=== PATIENT | female | born 1945 | race Caucasian/White ===

== ENCOUNTER 2019-11-17 13:38 | Outpatient (CLI) | payer MEDICARE, SELFPAY ==
--- NOTE | ~2019-11-17 | MM_ITS ---
EXAMINATION: MM diagnostic mammo BI HISTORY: Left breast calcifications and right breast mass on screening mammogram TECHNIQUE: Additional images of the breasts were performed. CAD analysis was submitted and interprete d. COMPARISON: 10/24/2019, 06/18/2015, 01/29/2014 FINDINGS: MAMMOGRAPHIC FINDINGS: Right breast: There is a 5 mm oval, obscured, equal density mass in the anterior third of the inner b reast 3 cm from the nipple. No associated calcification or architectural distortion are seen. Left breast: There are punctate calcifications in the posterior third of the breast at the 7:00 locat ion 8 cm from the nipple. The calcifications appear to be round in morphology and similar an appearan ce to prior mammograms of low magnification views have not previously been performed. IMPRESSION: 1. Persistent small right breast mass. Targeted right breast ultrasound is recommended. The patient i s unable to have this performed today and will return at a later date. 2. Probably benign left breast calcifications. Follow-up diagnostic left mammogram in six months is r ecommended. BI-RADS Category 0: Incomplete: Needs additional imaging evaluation. Reviewed, dictated and finalized at location A. [employer] WORK[employer] IMPRESSION: 1. Persistent small right breast mass. Targeted right breast ultrasound is gissel mmended. The patient is unable to have this performed today and will return at a later date. 2. Probably benign left breast calcifications. Follow-up diagnostic left mammog viki in six months is recommended. BI-RADS Category 0: Incomplete: Needs additional imaging evaluation.
== END 2019-11-17 13:39 | disposition home or self-care (01) ==
LOC: ANHIMG 13:48
PROVIDERS: PCP Nurse Practitioner Adult Health; Visit Provider Nurse Practitioner Adult Health
DX: R92.8 Other abnormal and inconclusive findings on diagnostic imaging of breast (principal)
CPT/HCPCS: 77066

== ENCOUNTER 2019-11-24 13:35 | Outpatient (CLI) | payer MEDICARE, SELFPAY ==
--- NOTE | ~2019-11-24 | US_ITS ---
US breast RT limited DATE: 11/24/2019 14:40 INDICATION: Right breast 4.5 mm mass on 10/24/2019 screening mammogram TECHNIQUE: High-resolution ultrasound imaging of the subareolar area of the right breast COMPARISON: 10/24/2019 bilateral digital screening mammogram 11/17/2019 diagnostic right digital mammogram FINDINGS: In the subareolar area of the right breast at 12:00 there is an oval approximately 4 mm son olucency. There is no internal vascularity or posterior shadowing. This is likely a small cyst. There is mild prominence of the ducts in the subareolar area. IMPRESSION: BI-RADS Category 3: Probably benign findings Recommendation: 6 month diagnostic right mammogram and targeted right breast ultrasound follow-up Reviewed, dictated and finalized at Location A. Reviewed, dictated and finalized at location A. GER SHAREPOINT IMPRESSION: BI-RADS Category 3: Probably benign findings Recommendation: 6 month diagnostic right mammogram and targeted right breast ul trasound follow-up
== END 2019-11-24 13:36 | disposition home or self-care (01) ==
PROVIDERS: PCP Nurse Practitioner Adult Health; Visit Provider Nurse Practitioner Adult Health
DX: R92.8 Other abnormal and inconclusive findings on diagnostic imaging of breast (principal)
CPT/HCPCS: 76642

== ENCOUNTER 2021-02-10 12:09 | Outpatient (CLI) | payer MEDICARE, SELFPAY ==
--- NOTE | ~2021-02-10 | MM_ITS ---
EXAMINATION: MM diagnostic maribel BI w manolo HISTORY: 12:00 subareolar 4 mm cyst; probably benign left breast microcalcifications, lower inner domitila drant TECHNIQUE: ML, MLO and craniocaudal 3-D tomosynthesis images of both breasts were performed and synth etic 2-D images were generated. Magnification views of lower inner quadrant of left breast. CAD thang sis was submitted and interpreted. COMPARISON: 11/17/2019 bilateral diagnostic digital mammogram 11/24/2019 limited right breast ultrasound FINDINGS: Minimal punctate benign appearing macro calcifications are noted in the lower inner quadran t of the left breast; no malignant calcifications are evident. Stable circumscribed low-density 4 mm opacity in the medial right subareolar area, consistent with cy sts reported on limited right breast ultrasound examination. No suspicious mass or architectural distortion, malignant calcification, skin thickening or retractio n or significant new or developing density of either breast is evident. IMPRESSION: 1. No mammographic evidence of malignancy 2. Routine annual mammographic screening is recommended BI-RADS Category 2: Benign finding(s). Reviewed, dictated and finalized at location A.
== END 2021-02-10 12:10 | disposition home or self-care (01) ==
LOC: ANHIMG 12:10
PROVIDERS: PCP Nurse Practitioner Adult Health; Visit Provider Nurse Practitioner Adult Health
DX: R92.8 Other abnormal and inconclusive findings on diagnostic imaging of breast (principal)
CPT/HCPCS: 77062; 77066; G0279

== ENCOUNTER 2023-02-09 19:50 | Emergency (ER) | payer MEDICARE, SELFPAY ==
--- NOTE | ~2023-02-09 | CT_ITS ---
EXAMINATION: CT abdomen pelvis w con, CT lumbar spine wo con DATE: 02/09/2023 21:30 INDICATION: Left flank pain and low back pain TECHNIQUE: Line 1. Computed tomography (CT) of the lumbar spine was performed without intravenous contrast. Sagittal and coronal reconstructions were performed. Automated exposure control and iterative reconstruction t echnique were employed. The dose-length product was 1275.6 mGy-cm. 2. CT of the abdomen and pelvis was performed with 100 mL Omnipaque-350 intravenous contrast. Automat ed exposure control and iterative reconstruction technique were employed. The dose-length product was 565.24 mGy-cm. COMPARISON: CT abdomen dated 08/07/2010 FINDINGS: Abdomen and pelvis: Minimal dependent atelectasis in the bilateral lower lobes. Heart size is normal. Atherosclerotic cor onary artery calcific location. No pericardial or pleural effusion. Chronic intra and extra hepatic p neumobilia likely related to prior cholecystectomy. Liver is otherwise unremarkable. Spleen, pancreas , bilateral adrenal glands and left kidney are normal. Mild right hydronephrosis with no evident urol ithiasis or obstructing mass. 6 mm cyst at the lower pole of the right kidney. Bladder is normal. Lar ge amount stool in the proximal colon. No bowel obstruction. The appendix is not visualized. No peric ecal inflammatory change to suggest acute appendicitis. Tiny calcification in the anterior uterine wa ll likely related to a small degenerated uterine fibroid. Bilateral adnexa are unremarkable. No free intraperitoneal gas or fluid. No pathologically enlarged abdominal or pelvic lymphadenopathy. Postope rative change of interval supraumbilical ventral hernia mesh repair. Lumbar spine: Alignment is normal. Subtle linear lucency along a relatively recent-appearing mild superior endplate compression fracture at T12 with <20% central vertebral body height loss. Remaining vertebral body h eights are normal. No other fractures identified. Mild disc height loss at T10-T11, T12-L1, L1-L2 and L2-L3. There are disc bulges at L1-L2 through L5-S1 resulting in mild central canal stenosis at each of these levels with the exception of L4-L5. At this level there is mild bilateral hypertrophy of th e ligamentum flavum as well as a rim calcified 9 x 6 mm right-sided synovial cyst which results in mo derate central canal stenosis along with narrowing of the right lateral recess and moderate right leif ral foraminal stenosis. Severe facet osteoarthritis bilaterally at L4-L5 and on the right at L5-S1. M ild to moderate facet osteoarthritis at the remaining lumbar and lower thoracic levels. There is jasiel tional moderate neural foraminal stenosis on the right at L5-S1 and mild neural from stenosis through out the remainder of the lumbar spine. IMPRESSION: 1. Mild lumbar spondylosis with relatively acute appearing mild compression fracture of the superior endplate of T12. 2. Mild right hydronephrosis without evident obstructing stone or masses. Reviewed, dictated and finalized at location A. IMPRESSION: 1. Mild lumbar spondylosis with relatively acute appearing mild compression fra cture of the superior endplate of T12. 2. Mild right hydronephrosis without evident obstructing stone or masses.
[2023-02-09 19:57] VITALS: BP 173/80; PULSE 93; RESP 20; TEMP 36.2; O2SAT 98
--- NOTE | 2023-02-09 20:18 | ED.BACK ---
HPI - Back Pain/Injury General Chief Complaint: Back Pain/Injury Stated Complaint: back pain Time Seen by Provider: 02/09/23 20:01 Source: patient Mode of arrival: ambulatory Limitations: no limitations History of Present Illness HPI Narrative: This is a 77-year-old female who presents to the ED with chief complaint of left flank pain onset x2 days. Patient states it has been gradually worsening. She was seen by her PCP yesterday and given prescriptions for Flexeril, naproxen, tramadol. States she has been taking these with very little relief. Although she does feel like the muscle relaxer has helped more than the other 2 meds. Denies any urinary symptoms. She states that the pain stays in the left flank and radiates up and down somewhat. No known injuries, but does report frequently picking up her grandson. Rates the pain at 8 out of 10. Does not report any abdominal pain. Denies nausea or vomiting. Denies fevers, chills, chest pain, shortness of breath, cough. Related Data Allergies Allergy/AdvReac Type Severity Reaction Status Date / Time Penicillins Allergy Unknown Unknown Verified 02/09/23 20:00 Review of Systems Review of Systems: CONSTITUTIONAL: Denies fever, chills, or sweats. EYES: Denies visual changes, redness, or discharge. ENT: Denies rhinorrhea, congestion, sore throat, or otalgia. CARDIOVASCULAR: Denies chest pain, palpitations, or edema. RESPIRATORY: Denies cough or dyspnea. GASTROINTESTINAL: See HPI GENITOURINARY: Denies dysuria or hematuria. Denies frequency or urgency. SKIN: Denies rash or itching. MUSCULOSKELETAL: Denies back pain, joint pain, or myalgia. NEUROLOGIC: Denies headache, numbness, dizziness, or weakness. PSYCHIATRIC: Denies anxiety or depression. [facility] Family History Family History (Updated 06/10/14 @ 07:13 by DOCTOR UNKNOWN) Father Family history of malignant neoplasm of esophagus Social History Social History Alcohol intake: never Exam Narrative: GENERAL: Well-appearing, well-nourished, and in no acute distress. HEAD: Normocephalic, atraumatic. EYES: PERRLA and EOMI. ENT: Nares clear, no rhinorrhea or epistaxis. Mucous membranes moist. Oropharynx without tonsillar hypertrophy exudate or other lesions. NECK: Supple. No adenopathy or masses. CHEST: No respiratory distress. Clear to auscultation. No wheezes rales or rhonchi HEART: Regular rate and rhythm. No murmur heard. Normal peripheral pulses. ABDOMEN: Left flank tenderness present. Abdomen is otherwise soft, nontender, nondistended, normal active bowel sounds. Negative peritoneal signs. EXTREMITIES/SPINE: Minimal midline tenderness in the lower thoracic and lumbar spine. No stepoff or deformity. Left paraspinal tenderness in the lumbar region. MSK exam otherwise benign. Ambulatory. Normal range of motion. No edema. SKIN: Warm, dry, no rash. NEURO: Alert and oriented x3. No focal deficits. PSYCH: Normal mood and affect. Course Vital Signs Vital signs: Vital Signs Temperature 97.2 F L 02/09/23 19:57 Pulse Rate 93 02/09/23 19:57 Respiratory Rate 20 02/09/23 19:57 Blood Pressure 173/80 H 02/09/23 19:57 Pulse Oximetry 98 02/09/23 19:57 Oxygen Delivery Room Air 02/09/23 19:57 Temperature 97.2 F L 02/09/23 19:57 Pulse Rate 86 02/09/23 22:47 Respiratory Rate 16 02/09/23 22:47 Blood Pressure 146/73 H 02/09/23 22:47 Pulse Oximetry 97 02/09/23 22:47 Oxygen Delivery Room Air 02/09/23 19:57 MDM - Back Pain/Injury MDM Narrative Medical decision making narrative: This is a 77-year-old female presents the ED with chief complaint of left flank pain x2 days. Vitals show initial hypertension, likely due to pain. Otherwise stable. Exam reveals some left flank tenderness. Otherwise benign. Lab work is grossly unremarkable. CT of the abdomen is unremarkable as well. CT lumbar does show evidence of a T12-L1 endplate compression fracture. Due to her pain more in
[2023-02-09] MEDS: ONDANSETRON INJ 4 MG/2 ML VIAL IV PUSH (20:34)
[2023-02-09] MEDS: SODIUM CHLORIDE 0.9% IV 500 ML 999 ML IV CONT (20:34)
[2023-02-09] MEDS: MORPHINE SULFATE (*CRX) 4 MG/ML INJ IV PUSH (20:34)
[2023-02-09 20:43] LABS: Hematocrit 28.9 % (37.0-47.0); Hemoglobin 8.2 g/dL (12.0-15.0); Mean Corpuscular HGB Conc 28.4 g/dl (32-36); Mean Corpuscular Volume 70.7 fl (80-100); Mean Platelet Volume 8.5 fl (7.4-10.4); Platelet Count Result 318 k/mm3 (150-375); Red Blood Count 4.09 M/mm3 (4.2-5.4); White Blood Count 7.4 K/mm3 (4.5-10.0)
[2023-02-09 20:46] LABS: Appearance Urine Clear (Clear); Bilirubin Urine Negative (Negative); Blood Urine Negative (Negative); Color Urine Yellow (Yellow); Glucose Urine UA Negative (Negative); Ketones Urine Negative (Negative); Leukocyte Esterase Ur Negative LEU/UL (Negative); Nitrate Urine Negative (Negative); Protein Urine Negative (Negative); Specific Grav Ur 1.007 (1.001-1.035); Urobilinogen Urine 0.2 mg/dL (<2.0)
[2023-02-09 20:52] LABS: Alanine Aminotransferase 27 U/L (6-35); Albumin Level 4.2 g/dL (3.5-5.1); Alkaline Phosphatase 103 U/L (38-126); Anion Gap 11 mmol/L (8-16); Aspartate Amino Transferase 36 U/L (14-36); Bilirubin,Total 0.6 mg/dL (0.2-1.3); Blood Urea Nitrogen 22 mg/dL (7-17); Calcium 9.3 mg/dL (8.4-10.2); Carbon Dioxide 24 mmol/L (22-30); Chloride 103 mmol/L (98-107); Estimated CRCL calculation 34 ml/min; Estimated Glomerular Filt Rate 48; Glucose 104 mg/dL (65-110); Sodium 138 mmol/L (137-145)
[2023-02-09 21:01] LABS: Add Urine Microscopic? NO
[2023-02-09 21:30] LABS: Anisocytosis 2+ (NORMAL); Lymphocytes Absolute Manual 2.29 K/mm3 (1.1-4.5); Monocytes Absolute Manual 0.29 K/mm3 (0.1-0.90); Monocytes Percent Manual 4 % (3-9); Neutrophils Percent Manual 65 % (46-73); Platelet Estimate Adequate (Adequate); Total Cells Counted 100
[2023-02-09 21:31] LABS: Acanthocytes 2+ (NORMAL); Hypochromasia 2+ (NORMAL); Macrocytosis 1+ (NORMAL); Microcytosis 2+ (NORMAL); Poikilocytosis 3+ (NORMAL); Schistocytes 1+ (NORMAL)
[2023-02-09 21:32] LABS: Burr Cells 2+ (NORMAL); Crenated RBC 2+ (NORMAL)
[2023-02-09 21:33] LABS: Ovalocytes 2+ (NORMAL)
[2023-02-09 22:47] VITALS: BP 146/73; PULSE 86; RESP 16; O2SAT 97
== END 2023-02-09 22:51 | disposition home or self-care (01) ==
PROVIDERS: Emergency Provider Physician Assistant; PCP Nurse Practitioner Adult Health
DX: S22.080A Wedge compression fracture of T11-T12 vertebra, initial encounter for closed fracture (principal); S39.012A Strain of muscle, fascia and tendon of lower back, initial encounter; M47.816 Spondylosis without myelopathy or radiculopathy, lumbar region; N13.30 Unspecified hydronephrosis; X58.XXXA Exposure to other specified factors, initial encounter
CPT/HCPCS: 36415; 72131; 74177; 80053; 81003; 85025; 96361; 96374; 96375; 99284; J2270; J2405; J7040; Q9967

== ENCOUNTER 2024-01-28 10:34 | Outpatient (CLI) | payer MEDICARE, SELFPAY ==
[2024-01-28 19:02] LABS: Hematocrit 34.3 % (37.0-47.0); Hemoglobin 9.2 g/dL (12.0-15.0); Mean Corpuscular HGB Conc 26.8 g/dl (32-36); Mean Corpuscular Hemoglobin 20.2 pg (26-34); Mean Corpuscular Volume 75.4 fl (80-100); Mean Platelet Volume 9.7 fl (7.4-10.4); Platelet Count Result 393 k/mm3 (150-375); Red Blood Count 4.55 M/mm3 (4.2-5.4); Red Cell Distribution Width 18.5 % (11.5-14.5); White Blood Count 8.5 K/mm3 (4.5-10.0)
[2024-01-28 19:19] LABS: Iron 39 ug/dL (37-170)
[2024-01-28 19:28] LABS: Percent Iron Saturation 8 % (20-50)
[2024-01-28 19:44] LABS: Alanine Aminotransferase 25 U/L (6-35); Albumin Level 4.7 g/dL (3.5-5.1); Alkaline Phosphatase 88 U/L (38-126); Anion Gap 10 mmol/L (4-12); Aspartate Amino Transferase 45 U/L (14-36); Bilirubin,Total 0.4 mg/dL (0.2-1.3); Blood Urea Nitrogen 25 mg/dL (7-17); Calcium 10.7 mg/dL (8.4-10.2); Carbon Dioxide 25 mmol/L (22-30); Chloride 105 mmol/L (98-107); Cholesterol 198 mg/dL (0-200); Estimated Glomerular Filt Rate 43; Glucose 205 mg/dL (65-110); HDL Direct 49 mg/dL; Potassium 4.4 mmol/L (3.4-5.0); Sodium 140 mmol/L (137-145); Triglycerides 199 mg/dL (<150)
[2024-01-28 19:55] LABS: Ferritin 6.24 ng/mL (11.1-264); LDL Cholesterol Direct 113 mg/dL
[2024-01-28 20:04] LABS: MALB Creatinine Ratio 45.6 mg/g (0-30); Microalbumin Urine Random 105.3 mg/L (0-16.7)
[2024-01-28 20:50] LABS: Folic Acid 14.8 ng/mL (2.76->20)
== END 2024-01-28 10:35 | disposition home or self-care (01) ==
PROVIDERS: PCP Nurse Practitioner Adult Health; Visit Provider Nurse Practitioner Adult Health
DX: E11.9 Type 2 diabetes mellitus without complications (principal); R41.3 Other amnesia
CPT/HCPCS: 36415; 80053; 80061; 82043; 82607; 82728; 82746; 83036; 83540; 83550; 84443; 85027

== ENCOUNTER 2024-04-29 16:40 | Outpatient (CLI) | payer MEDICARE, SELFPAY ==
--- NOTE | ~2024-04-29 | US_ITS ---
RIGHT LOWER EXTREMITY VENOUS ULTRASOUND Ordering provider: Casie Medel APRN History: . M.063 - Pain in right lower leg . Comparison: None. FINDINGS: --COMMON FEMORAL: Patent and free of thrombus. Normal compressibility, phasic flow and augmentation. --PROXIMAL SUPERFICIAL FEMORAL: Patent and free of thrombus. Normal compressibility, phasic flow and augmentation. --DISTAL SUPERFICIAL FEMORAL: Patent and free of thrombus. Normal compressibility, phasic flow and au gmentation. --POPLITEAL: Patent and free of thrombus. Normal compressibility, phasic flow and augmentation. --POSTERIOR TIBIAL: Patent and free of thrombus. Normal compressibility, phasic flow and augmentation . IMPRESSION: Negative right lower extremity venous US. No deep vein thrombosis. Reviewed, dictated and finalized at location A.
== END 2024-04-29 16:41 | disposition home or self-care (01) ==
LOC: ANHIMG 16:42
PROVIDERS: PCP Nurse Practitioner Adult Health; Visit Provider Nurse Practitioner Adult Health
DX: M79.661 Pain in right lower leg (principal); R60.0 Localized edema
CPT/HCPCS: 93971

== ENCOUNTER 2024-04-30 11:18 | Outpatient (CLI) | payer MEDICARE, SELFPAY ==
--- NOTE | ~2024-04-30 | XR_ITS ---
Right ankle Technique: AP and lateral views were obtained. Clinical History: Pain Findings: No acute fracture or dislocation is seen. Osseous alignment is anatomic. Ankle mortise and other visualized joint spaces are preserved. Soft tissues are otherwise unremarkable. Impression: Unremarkable right ankle. Reviewed, dictated and finalized at location . Impression: Unremarkable right ankle.
--- NOTE | ~2024-04-30 | XR_ITS ---
Right foot Technique: AP and lateral views were obtained. Clinical History: Pain Findings: No acute fracture or dislocation is seen. Osseous alignment is anatomic. Probable moderate degenerative change of the tarsometatarsal joints. Soft tissues are unremarkable. 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 Reviewed, dictated and finalized at location . 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
== END 2024-04-30 11:19 | disposition home or self-care (01) ==
PROVIDERS: PCP Nurse Practitioner Adult Health; Visit Provider Nurse Practitioner Adult Health
DX: M79.671 Pain in right foot (principal)
CPT/HCPCS: 73600; 73620

== ENCOUNTER 2024-06-01 10:58 | Outpatient (CLI) | payer MEDICARE, SELFPAY ==
[2024-06-01 19:18] LABS: Microalbumin Urine Random 51.5 mg/L (0-16.7)
== END 2024-06-01 10:59 | disposition home or self-care (01) ==
LOC: ANHBWCLAB 11:00
PROVIDERS: PCP Nurse Practitioner Adult Health; Visit Provider Nurse Practitioner Adult Health
DX: E11.9 Type 2 diabetes mellitus without complications (principal); I10 Essential (primary) hypertension
CPT/HCPCS: 82043

== ENCOUNTER 2024-06-02 06:35 | Outpatient (CLI) | payer MEDICARE, SELFPAY ==
[2024-06-02 18:40] LABS: Basophils Percent Auto 0.5 % (0.2-1.2); Eosinophils Absolute Auto 0.2 K/mm3 (0-0.3); Eosinophils Percent Auto 3.5 % (0-4.4); Hematocrit 30.7 % (37.0-47.0); Immature Granulocyte Absolute 0.02 K/mm3 (0.00-0.031); Immature Granulocyte Percent A 0.3 % (0-0.5); Lymphocytes Absolute Auto 1.54 K/mm3 (0.9-3.2); Lymphocytes Percent Auto 26.6 % (18.3-44.2); Mean Corpuscular HGB Conc 29.3 g/dl (32-36); Mean Corpuscular Hemoglobin 24.1 pg (26-34); Mean Corpuscular Volume 82.1 fl (80-100); Monocytes Absolute Auto 0.4 K/mm3 (0.1-0.6); Monocytes Percent Auto 6.4 % (2.6-8.5); Neutrophils Absolute Auto 3.6 K/mm3 (1.3-6.7); Neutrophils Percent Auto 62.7 % (45.5-73.1); Platelet Count Result 299 k/mm3 (150-375); Red Blood Count 3.74 M/mm3 (4.2-5.4); Red Cell Distribution Width 19.7 % (11.5-14.5); White Blood Count 5.8 K/mm3 (4.5-10.0)
[2024-06-02 18:43] LABS: Alanine Aminotransferase 22 U/L (6-35); Albumin Level 4.1 g/dL (3.5-5.1); Alkaline Phosphatase 86 U/L (38-126); Anion Gap 11 mmol/L (4-12); Aspartate Amino Transferase 46 U/L (14-36); Bilirubin,Total 0.3 mg/dL (0.2-1.3); Blood Urea Nitrogen 19 mg/dL (7-17); Calcium 9.7 mg/dL (8.4-10.2); Carbon Dioxide 28 mmol/L (22-30); Chloride 100 mmol/L (98-107); Cholesterol 183 mg/dL (0-200); Estimated Glomerular Filt Rate 40; Glucose 162 mg/dL (65-110); HDL Direct 42 mg/dL; Magnesium 1.6 mg/dL (1.6-2.3); Potassium 4.7 mmol/L (3.4-5.0); Sodium 139 mmol/L (137-145); Triglycerides 178 mg/dL (<150)
[2024-06-02 18:54] LABS: LDL Cholesterol Direct 98 mg/dL
[2024-06-02 18:59] LABS: Platelet Estimate Adequate (Adequate)
[2024-06-02 19:00] LABS: Anisocytosis 1+; Ovalocytes 2+; Poikilocytosis 2+
[2024-06-02 19:02] LABS: Schistocytes None Seen
[2024-06-02 19:20] LABS: Hemoglobin A1C 8.2 % (<5.7)
[2024-06-02 19:44] LABS: Folic Acid 12.8 ng/mL (2.76->20)
== END 2024-06-02 06:36 | disposition home or self-care (01) ==
PROVIDERS: PCP Nurse Practitioner Adult Health; Visit Provider Nurse Practitioner Adult Health
DX: E11.9 Type 2 diabetes mellitus without complications (principal); I10 Essential (primary) hypertension; E53.8 Deficiency of other specified B group vitamins
CPT/HCPCS: 36415; 80053; 80061; 82565; 82607; 82746; 83036; 83735; 85025

== ENCOUNTER 2024-08-19 10:35 | Outpatient (CLI) | payer MEDICARE, SELFPAY ==
[2024-08-19 21:22] LABS: Add Urine Microscopic? YES; Appearance Urine Turbid (Clear); Bacteria Urine 4+ /hpf; Bilirubin Urine Negative (Negative); Blood Urine 3+ (Negative); Color Urine Yellow (Yellow); Glucose Urine UA Negative (Negative); Ketones Urine Trace mg/dL (Negative); Leukocyte Esterase Ur 3+ LEU/UL (Negative); Need Manual Microscopic Reviewed; Nitrate Urine Positive (Negative); Protein Urine 2+ mg/dL (Negative); RBC Urine 0-2 /hpf (0-2); Specific Grav Ur 1.024 (1.001-1.035); Squamous Epithelial Cell Urine Few /hpf (Few); WBC Urine >100 /hpf (0-3)
== END 2024-08-19 10:36 | disposition home or self-care (01) ==
PROVIDERS: PCP Nurse Practitioner Adult Health; Visit Provider Nurse Practitioner Adult Health
DX: R39.9 Unspecified symptoms and signs involving the genitourinary system (principal)
CPT/HCPCS: 81001; 87077; 87086; 87186

== ENCOUNTER 2024-11-18 09:57 | Outpatient (CLI) | payer MEDICARE, SELFPAY ==
[2024-11-18 18:37] LABS: Creatinine Urine 133.7 mg/dL
[2024-11-18 18:42] LABS: MALB Creatinine Ratio 71.5 mg/g (0-30); Microalbumin Urine Random 95.6 mg/L (0-16.7)
[2024-11-18 18:56] LABS: Alanine Aminotransferase 26 U/L (6-35); Albumin Level 4.3 g/dL (3.5-5.1); Alkaline Phosphatase 92 U/L (38-126); Anion Gap 10 mmol/L (4-12); Aspartate Amino Transferase 43 U/L (14-36); Bilirubin,Total 0.4 mg/dL (0.2-1.3); Blood Urea Nitrogen 20 mg/dL (7-17); Calcium 9.9 mg/dL (8.4-10.2); Carbon Dioxide 26 mmol/L (22-30); Chloride 102 mmol/L (98-107); Cholesterol 190 mg/dL (0-200); Estimated Glomerular Filt Rate 45; Glucose 134 mg/dL (65-110); HDL Direct 46 mg/dL; Potassium 4.5 mmol/L (3.4-5.0); Sodium 138 mmol/L (137-145); Triglycerides 224 mg/dL (<150)
[2024-11-18 19:07] LABS: LDL Cholesterol Direct 113 mg/dL
[2024-11-18 19:22] LABS: Hemoglobin A1C 8.9 % (<5.7)
== END 2024-11-18 09:58 | disposition home or self-care (01) ==
PROVIDERS: PCP Nurse Practitioner Adult Health; Visit Provider Nurse Practitioner Adult Health
DX: E11.9 Type 2 diabetes mellitus without complications (principal); E53.8 Deficiency of other specified B group vitamins
CPT/HCPCS: 36415; 80053; 80061; 82043; 82565; 82607; 83036

== ENCOUNTER 2025-02-16 08:51 | Outpatient (CLI) | payer MEDICARE, SELFPAY ==
--- OUTSIDE RECORDS SUMMARY | 2025-02-16 09:21 | XMS_ITS | Continuity of Care Document ---
Author Organization [facility] [place] [address] [place] [address] Phone Care Team Providers Care Nursing Home Aide Name Role Phone Ana María Reyes Unavailable Unavailable Procedures Procedure Date Office/outpatient Visit, Est Optic Nerve Head Eval IOP Red Less Than 15% W Plan Of Care Jul IOP Red Less That 15% W Plan Of Care Jul Eye Exam & Treatment Visual Field Examination(s) Office/outpatient Visit, Est Office/outpatient Visit, Est Visual Field Examination(s) Office/outpatient Visit, Est Fundus Photography W/ Report Office/outpatient Visit, Est Office/outpatient Visit, Est Office/outpatient Visit, Est Visual Field Examination(s) Advance Directives Directive Yes / No Effective Date File Name No Information Encounters Encounter Description Practice Location Reason(s) For Visit Diagnoses Date Provider Providers Copied on Encounter Office/outpat ient Visit, Est [facility], [address], [place], [place], [id number], [place] tel:[phone] SEC [facility] No Information Oct-0 7-201 0 Amy Gotti. [address] , [address], [place], [address], [place]. tel:[phone] [facility] Eye [facility], [id number] [place] [address] [address], [place], [place], [id number], [place] [phone] [facility] [place] No Information Hal-1 0-201 0 Amy Sylvester [address] [facility] , [address], [place], [place], [facility], . tel:[phone] [facility] Eye [facility], [address] [place] [address] [address], [place], [place], [id number], [place] [phone] [facility] [place] No Information Dec-0 3-200 9 Amy Sylvester [address] [facility] , [address], [place], [place], [facility], . tel:[phone] Referring Provider: Blayne Menendez [facility] [address], [place], [place], [facility]. tel:[phone] Office/outpat ient Visit, [facility] Eye [facility], [id number] [place] [address] [address], [place], [place], [id number], [place] tel:[phone] [facility] [place] No Information Delvis-1 6-200 9 Amy Sylvester [address] [facility] , [address], [place], [place], [facility], . tel:[phone] Office/outpat ient Visit, [facility] Eye [facility], [address] [place] [address] [address], [place], [place], [id number], [place] tel:[phone] [facility] [place] No Information Mar-0 5-200 9 Amy Sylvester [address] [facility] , [address], [place], [place], [facility], . tel:[phone] [facility] Eye [facility], [address] [place] [address] [address], [place], [place], [id number], [place] tel:[phone] [facility] [place] No Information Oct-1 6-200 8 Amy Sylvester [address] , [address], [place], [place], [facility], [place]. tel:[phone] Referring Provider: Blayne Menendez [address], [place], [place], [facility]. tel:[phone] Office/outpat ient Visit, [facility] Eye [facility], [address] [place] [address] [address], [place], [place], [id number], [place] tel:[phone] [facility] No Information 8 Amy [address] , [address], [place], [place], [facility], [place]. tel:[phone] Referring Provider: Blayne Menendez [facility] [address], [place], [place], [facility]. tel:[phone] Office/outpat ient Visit, [facility] Eye [facility], [address] [place] [address] [address], [place], [place], [id number], [place] tel:[phone] [facility] No Information 8 Amy [address] [facility] , [address], [place], [place], [facility], [place]. tel:[phone] Office/outpat ient Visit, [facility] Eye [facility], [address] [place] [address] [address], [place], [place], [id number], [place] tel:[phone] [facility] [place] No Information [address], [place], [place], [facility], [place]. tel:[phone] Office/outpat ient Visit, [facility] Eye [facility], [address] [place] [address] [address], [place], [place], [id number], [place] tel:[phone] [facility] No Information 7 Amy [address] , [address], [place], [place], [facility], [place]. tel:[phone] [facility] Eye [facility], [address], [place], [place], [id number], [place] tel:[phone] [facility] No Information 7 Aym Gotti. [address] , [address], [place], [address], [place]. tel:[phone] Referring Provider: Ana María Silvestre, [address], [place], [address]. tel:[phone] Family History Family Member Type Diagnosis Age At Onset No Information Payers Payer name Insurance type Covered alliance party ID Authorberenicea torin(s) [place] [id number] [facility] [id number] Social History Type Description Quantity Date Captured Comments Sex Female Smoking Status No Information Chief Complaint And Reason For Visit No Information Reason For Referral Reason For Referral No Information History Of Present Illness Encounter Date Complaint History Of Prese nt Illness No Information Functional Status Date Functional Assessmen t No Information Instructions Date Instruction Additional Infor mation No Information Assessments Type Assessment Date No Information Patient Care Teams Name Effective Dates (start - stop) Status Members No Information
[2025-02-16 20:20] LABS: Alanine Aminotransferase 32 U/L (6-35); Albumin Level 4.4 g/dL (3.5-5.1); Alkaline Phosphatase 105 U/L (38-126); Anion Gap 10 mmol/L (4-12); Aspartate Amino Transferase 54 U/L (14-36); Bilirubin,Total 0.3 mg/dL (0.2-1.3); Blood Urea Nitrogen 22 mg/dL (7-17); Calcium 9.7 mg/dL (8.4-10.2); Carbon Dioxide 25 mmol/L (22-30); Chloride 102 mmol/L (98-107); Cholesterol 210 mg/dL (0-200); Estimated Glomerular Filt Rate 41; Glucose 270 mg/dL (65-110); HDL Direct 41 mg/dL; Potassium 4.6 mmol/L (3.4-5.0); Sodium 137 mmol/L (137-145); Triglycerides 243 mg/dL (<150)
[2025-02-16 20:31] LABS: LDL Cholesterol Direct 110 mg/dL
[2025-02-16 21:10] LABS: MALB Creatinine Ratio 78.3 mg/g (0-30); Microalbumin Urine Random 137.8 mg/L (0-16.7)
== END 2025-02-16 08:52 | disposition home or self-care (01) ==
LOC: ANHBWCLAB 08:53
PROVIDERS: PCP Nurse Practitioner Adult Health; Visit Provider Nurse Practitioner Adult Health
DX: E11.9 Type 2 diabetes mellitus without complications (principal); E53.8 Deficiency of other specified B group vitamins
CPT/HCPCS: 36415; 80053; 80061; 82043; 82565; 82607; 83036

== ENCOUNTER 2025-09-23 09:36 | Outpatient (CLI) | payer MEDICARE, SELFPAY ==
[2025-09-23 18:54] LABS: Alanine Aminotransferase 24 U/L (6-35); Albumin Level 4.4 g/dL (3.5-5.1); Alkaline Phosphatase 101 U/L (38-126); Anion Gap 8 mmol/L (4-12); Aspartate Amino Transferase 46 U/L (14-36); Bilirubin,Total 0.4 mg/dL (0.2-1.3); Blood Urea Nitrogen 21 mg/dL (7-17); Calcium 10.2 mg/dL (8.4-10.2); Carbon Dioxide 25 mmol/L (22-30); Chloride 103 mmol/L (98-107); Cholesterol 191 mg/dL (0-200); Estimated Glomerular Filt Rate 42; Glucose 225 mg/dL (65-110); HDL Direct 42 mg/dL; Potassium 4.1 mmol/L (3.4-5.0); Sodium 136 mmol/L (137-145); Total Protein 7.8 g/dL (6.3-8.2); Triglycerides 223 mg/dL (<150)
[2025-09-23 19:39] LABS: MALB Creatinine Ratio 113.3 mg/g (0-30)
[2025-09-23 19:48] LABS: Vitamin B12 560.0 pg/mL (239-931)
[2025-09-23 21:28] LABS: Hemoglobin A1C 8.5 % (<5.7)
== END 2025-09-23 09:37 | disposition home or self-care (01) ==
PROVIDERS: PCP Nurse Practitioner Adult Health; Visit Provider Nurse Practitioner Adult Health
DX: E11.9 Type 2 diabetes mellitus without complications (principal); E53.8 Deficiency of other specified B group vitamins
CPT/HCPCS: 36415; 80053; 80061; 82043; 82565; 82607; 83036